=== PATIENT | female | born 1955 | race African-American/Black ===

== ENCOUNTER 2017-08-02 00:37 | Emergency (ER) | payer BC ==
[2017-08-02 00:48] VITALS: TEMP 98.8; BMI 21.2
--- NOTE | 2017-08-02 01:45 | PDOC ---
History of Present Illness - General Chief Complaint: Chest Pain Stated Complaint: CHEST PAIN Time Seen by Provider: 08/02/17 01:30 History Source: Patient Exam Limitations: No Limitations - History of Present Illness Initial Comments: This is a 62 yo female with h/o HTN and fibromyalgia who presents h/o chest pain for the past week. The pain is 8/10 when she moves or breathes deeply, radiates to the right upper abdomen, is constant and has been worsening since the onset a week ago. She has taken no medications specifically for this pain ( though she notes she does take a narcotic pain reliever for her fibromyalgia anyway) and has never had this pain before. She additionally notes subjective fever, sweats, and runny nose. She denies any nausea, vomiting, diarrhea, headache, dysuria, cough, or sore throat. She has not had any prolonged immobilization or travel. She has not had a recent injury, surgery, or leg pain/ swelling, and has not had clotting problems in the past. She does not take estrogen. Past History - Past Medical History Allergies/Adverse Reactions: Allergies Allergy/AdvReac Type Severity Reaction Status Date / Time enalapril Allergy Severe Swelling Verified 08/02/17 00:45 flu shot Allergy Severe Rash Uncoded 08/02/17 00:45 Home Medications: Ambulatory Orders Hydrochlorothiazide [Hctz -] 25 mg PO DAILY 06/26/14 Zolpidem Tartrate [Ambien Cr] 12.5 mg PO HS 04/18/15 Hydralazine HCl 50 mg PO TID 05/18/16 Tapentadol HCl [Nucynta] 50 mg PO DAILY 06/29/16 Hydroxyzine HCl [Atarax -] 25 mg PO DAILY 06/30/16 Milk Thistle Seed Extract [Milk Thistle Extract] 87.5 mg PO DAILY 08/02/17 Omeprazole Magnesium [Prilosec] 20 mg PO DAILY 08/02/17 Clindamycin [Cleocin -] 300 mg PO TID #30 capsule 08/04/17 Anemia: No Asthma: No Cancer: No Cardiac Disorders: No CVA: No COPD: No CHF: No Dementia: No Diabetes: No GI Disorders: Yes (STOMACH ULCER) Disorders: No HTN: Yes Hypercholesterolemia: No Liver Disease: Yes (HEPATITIS A) Suicide Attempt (Hx): No Seizures: No Thyroid Disease: No - Surgical History Abdominal Surgery: Yes (EXPLORATORY LAP-GASTRIC ULCER) Appendectomy: No Cardiac Surgery: No Cholecystectomy: No Lung Surgery: No Neurologic Surgery: No Orthopedic Surgery: No - Immunization History Immunization Up to Date: Yes - Suicide/Smoking/Psychosocial Hx Anxiety: No Suicidal Ideation: No Smoking History: Never smoked Have you smoked in the past 12 months: No If you are a former smoker, when did you quit?: 10 YRS AGO Hx Alcohol Use: No Drug/Substance Use Hx: No Substance Use Type: Alcohol Hx Substance Use Treatment: No Cardiac Specific PMH - Complaint Specific PMHX Pacemaker: No Review of Systems - Review of Systems Constitutional: Yes: Fever (subjective), Other (sweats). No: Chills, Unexplained wgt Loss HEENTM: Yes: Other (runny nose). No: Nose Congestion, Throat Pain Respiratory: Yes: Shortness of Breath (secondary only to pain). No: Cough Cardiac (ROS): Yes: Chest Pain (right sided). No: Edema, Palpitations ABD/GI: Yes: Constipated (chronic). No: Diarrhea, Nausea, Vomiting : No: Burning, Dysuria Musculoskeletal: No: Back Pain, Neck Pain Integumentary: No: Bruising, Rash Neurological: No: Headache, Numbness, Tingling, Weakness, Dizziness Endocrine: No: Unexplained Weight Gain, Unexplained Weight Loss *Physical Exam - Vital Signs Last Vital Signs Temp Pulse Resp BP Pulse Ox 98.8 F 85 16 152/90 99 08/02/17 00:40 08/02/17 09:18 08/02/17 09:18 08/02/17 09:18 08/02/17 09:18 - Physical Exam General Appearance: Yes: Nourished, Appropriately Dressed, Thin, Other (well- appearing, conversive, pleasant, answering questions appropriately). No: Apparent Distress HEENT: positive: EOMI, Normal Voice, Hearing Grossly Normal. negative: Scleral Icterus (R), Scleral Icterus (L), Nasal Congestion Neck: positive: Trachea midline, Supple. negative: Tender, Rigid Respiratory/Chest: positive: Chest Tender (tenderness to compression of the right chest wall which reproduces the chief complaint exactly), Lungs Clear, Normal Breath Sounds. negative: Respiratory Distress, Accessory Muscle Use, Crackles, Rhonchi, Stridor, Wheezing Cardiovascular: positive: Regular Rhythm, Regular Rate. negative: Murmur Gastrointestinal/Abdominal: positive: Normal Bowel Sounds, Flat, Soft. negative : Tender, Organomegaly, Pulsatile Mass, Guarding Musculoskeletal: positive: Normal Inspection. negative: CVA Tenderness, Decreased Range of Motion, Vertebral Tenderness Extremity: positive: Normal Capillary Refill, Normal Inspection, Normal Range of Motion. negative: Tender, Cyanosis Integumentary: positive: Normal Color, Dry, Warm. negative: Erythema, Rash, Bruising Neurologic: positive: terminal manager II-XII NML intact (grossly), Fully Oriented, Alert, Normal Mood/Affect, Normal Response, Motor Strength 5/5 Heart Score/ECG Review - History History: Slightly suspicious - Electrocardiogram EKG: Normal - Age Age: 45-65 - Risk Factors Risk Factors Heart Score: Yes Hx Hypertension Based on the list above the patient has:: 1-2 risk factors - Troponin Troponin: </= normal limit - Score Heart Score - Total: 2 #1 Normal sinus rhythm, rate of 84, normal axis and intervals, normal EKG ED Treatment Course - LABORATORY CBC & Chemistry Diagram: 08/02/17 01:58 08/02/17 04:50 - ADDITIONAL ORDERS Additional order review: 08/02/17 03:15 Urine Culture - Final Urine - Urine Clean Catch Strep Agalactiae Group B 08/02/17 01:58 RBC 3.57 L MCV 81.4 MCHC 33.9 RDW 13.8 MPV 8.9 Neutrophils % 60.7 Lymphocytes % 22.4 Monocytes % 13.3 H Eosinophils % 2.1 Basophils % 1.5 - RADIOLOGY Radiology Studies Ordered: Category Date Time Status CHEST CTA [CT] Stat CT Scan 08/02/17 02:58 Completed CHEST PA & LAT [RAD] Stat Radiology 08/02/17 01:47 Completed EXAM#: TYPE/EXAM: RESULT: [id number] RAD/CHEST PA LAT EXAM: CHEST X-RAY-PA AND LATERAL VIEWS INDICATION: Chest pain. COMPARISON: 04/18/2015 chest x-ray. FINDINGS: There is linear scarring and/or atelectasis in the inferior lingula and bilateral lung bases. There is no airspace consolidation or other opacity to suggest pneumonia. Normal size and contour of the cardiomediastinal silhouette. No evidence of pulmonary vascular congestion, pleural effusion or pneumothorax. No abnormal deviation of the trachea. IMPRESSION: No airspace consolidation or other opacity to suggest pneumonia. Mild linear scarring and/or atelectasis in both lung bases and inferior lingula. Reported By: Luis Alfredo Barba MD 08/02/17 0758 EXAM#: TYPE/EXAM: RESULT: [id number] CT/CHEST CTA HISTORY PROVIDED: Chest pain, rule out PE. TECHNIQUE: Sequential axial images were obtained from the thoracic inlet through the domes of the diaphragm following the administration of intravenous contrast material. CTA pulmonary embolism protocol was utilized, including coronal and oblique coronal MIP images. There is adequate opacification of the central pulmonary vasculature with no filling defects suspicious for pulmonary embolism. The lung forbes are free of pulmonary masses, areas of acute consolidation or pleural effusions. Mild atelectatic changes are seen at the lung bases. Evaluation of the mediastinum demonstrates slightly prominent lymph nodes, particularly within the subcarinal space. The etiology and significance of this adenopathy is uncertain. The heart is not enlarged. There is no evidence of thoracic aortic aneurysm or dissection. Limited evaluation of the upper abdomen demonstrates no acute abnormalities. IMPRESSION: No evidence of pulmonary embolism or acute pathology within the chest. Please see above discussion. Reported By: Iron Dominguez MD 08/02/17 0803 - Medications Given in the ED: ED Medications Discontinued Medications Generic Name Dose Route Start Last Admin Trade Name Freq PRN Reason Stop Dose Admin Sodium Chloride 1,000 mls @ 1,000 mls/hr 08/02/17 03:03 08/02/17 03:18 Normal Saline - IV 08/02/17 04:02 1,000 mls/hr ASDIR STA Administration Sodium Chloride 1,000 mls @ 1,000 mls/hr 08/02/17 03:27 08/02/17 03:59 Normal Saline - IV 08/02/17 04:26 1,000 mls/hr ASDIR STA Administration Medical Decision Making - Medical Decision Making 62 yof with HTN and fibromyalgia p/w right chest pain radiating to RUQ. On exam she has normal heart and lung sounds, chest wall tenderness to compression. No leg tenderness or swelling, no palpable cords. DDX: musculoskeletal/chest wall pain, ACS, PE, PNA/bronchitis, pneumothorax. cholecystitis. Ordered is CBCD, CMP, Mg, Phos, cardiac profile, EKG, CXR, d-dimer. Unlikely PE as she meets no PERC or Wells criteria but will get d-dimer. Unlikely PTX as breath sounds are equal. Unlikely PNA/bronchitis as Pt has no SOB or cough. Lab calls and d-dimer is elevated >950. Chest CTA ordered but Pt's Cr is 1.5 (better than prior here on her EMR). LFTs also elevated though patient had HCV (treated last year with Harvoni). Will hydrate the patient with IVF and repeat CMP then try for CTA. CMP improves and Pt is appropriate for CTA. CTA and CXR without e/o PE or other acute cardiopulmonary processes. Pt's care is signed out to the oncoming ED team for repeat troponin. *DC/Admit/Observation/Transfer Diagnosis at time of Disposition: Chest pain Qualifiers: Chest pain type: unspecified Qualified Code(s): R07.9 - Chest pain, unspecified - Discharge Dispostion Disposition: HOME Condition at time of disposition: Improved Admit: No - Prescriptions Prescriptions: Clindamycin [Cleocin -] 300 mg PO TID #30 capsule - Referrals Referrals: Faye Morris MD [Primary Care Provider] - - Patient Instructions Printed Discharge Instructions: DI for Chest Pain Additional Instructions: You were seen in the ED today for right-sided chest pain. We did blood work, an EKG, and a CT scan of the chest, and overall we did not find anything to suggest you have an emergency cause for the pain. Please follow up with Dr. Morris or one of his colleagues in his office. Return to the ED if you have any new or worsening symptoms like shortness of breath, worsened pain, calf tenderness or swelling, or other symptoms. - Post Discharge Activity Forms/Work/School Notes: Back to Work
--- NOTE | 2017-08-02 01:53 | PDOC ---
Attending Attestation - Resident Resident Name: Dara Mascorro - ED Attending Attestation I have performed the following: I have examined & evaluated the patient, The case was reviewed & discussed with the resident, I agree w/resident's findings & plan, Exceptions are as noted - HPI HPI: 08/02/17 01:52 chest pain with difficulty for one week. - Physicial Exam PE: 08/07/17 19:35 *Physical Exam General Appearance: Yes: Appropriately Dressed. No: Apparent Distress, Intoxicated HEENT: positive: EOMI, PAPI, Normal ENT Inspection, Normal Voice, TMs Normal, Pharynx Normal. negative: Pale Conjunctivae, Photophobia, Scleral Icterus (R), Scleral Icterus (L) Neck: positive: Trachea midline, Normal Thyroid, Supple. negative: Tender, Rigid, Carotid bruit, Stridor, Lymphadenopathy (R), Lymphadenopathy (L), Thyromegaly Respiratory/Chest: positive: Lungs Clear, Normal Breath Sounds. negative: Chest Tender, Respiratory Distress, Accessory Muscle Use, Labored Respiration, RES, Crackles, Rales, Rhonchi, Stridor, Wheezing, Dullness Cardiovascular: positive: Regular Rhythm, Regular Rate, S1, S2. negative: Edema , JVD, Murmur, Bradycardia, Tachycardia Vascular Pulses: Dorsalis-Pedis (R): 2+, Doralis-Pedis (L): 2+ Gastrointestinal/Abdominal: positive: Normal Bowel Sounds, Flat, Soft. negative : Tender, Organomegaly, Pulsatile Mass, Increased Bowel Sounds, Decreased BS, Distended, Guarding, Rebound, Hernia, Hepatomegaly, Spleenomegaly Lymphatic: negative: Adenopathy, Tenderness Musculoskeletal: positive: Normal Inspection. negative: CVA Tenderness, Decreased Range of Motion Extremity: positive: Normal Capillary Refill, Normal Inspection, Normal Range of Motion, Pelvis Stable. negative: Tender, Pedal Edema, Swelling, Erythema Integumentary: positive: Normal Color, Dry, Warm. negative: Cyanotic, Erythema , Jaundice, Rash Neurologic: positive: security patrol officer II-XII NML intact, Fully Oriented, Alert, Normal Mood/ Affect, Motor Strength 5/5. negative: EOM Palsy, Facial Droop, Sensory Deficit - Medical Decision Making 08/07/17 19:35 patient had 2 negative troponins and discharged to follow up with cardiology
[2017-08-02 02:14] LABS: BASOPHIL 1.5 % (0-2.0); EOSINOPHIL 2.1 % (0-4.5); MCH 27.6 pg (25.7-33.7); MCHC 33.9 g/dl (32.0-36.0); MEAN CELL VOLUME 81.4 fl (80-96); MEAN PLT VOLUME 8.9 fl (7.5-11.1); NEUTROPHILS 60.7 % (42.8-82.8); PLATELET COUNT 338 K/MM3 (134-434); RDW 13.8 % (11.6-15.6); WHITE BLOOD COUNT 6.4 K/mm3 (4.0-10.0)
[2017-08-02 02:41] LABS: ALBUMIN 3.1 g/dl (3.4-5.0); ALK PHOS 677 U/L (45-117); ANION GAP 10 (8-16); BILIRUBIN,TOTAL 1.5 mg/dL (0.2-1.0); CALCIUM 9.1 mg/dL (8.5-10.1); CO2 25 mmol/L (21-32); CREATININE 1.5 mg/dL (0.55-1.02); GLUCOSE,RANDOM 98 mg/dL (74-106); MAGNESIUM 1.7 mg/dL (1.8-2.4); PHOSPHOROUS 3.4 mg/dL (2.5-4.9); SGOT/AST 114 U/L (15-37); SGPT/ALT 131 U/L (12-78); TOT PROT 8.1 g/dl (6.4-8.2)
[2017-08-02 03:00] LABS: CPK 180 IU/L (26-192)
[2017-08-02 03:01] LABS: TROPONIN I < 0.02 ng/ml (0.00-0.05)
[2017-08-02] MEDS ORDERED: SODIUM CHLORIDE 1,000 ML IV STA ×2 (03:03→03:27)
[2017-08-02 03:20] LABS: URINE APPEARANCE CLEAR; URINE BILIRUBIN NEGATIVE (NEGATIVE); URINE BLOOD NEGATIVE (NEGATIVE); URINE COLOR AMBER; URINE GLUCOSE (UA) NEGATIVE (NEGATIVE); URINE KETONE NEGATIVE (NEGATIVE); URINE LEUK ESTERASE TRACE (NEGATIVE); URINE NITRITE NEGATIVE (NEGATIVE); URINE PROTEIN NEGATIVE (NEGATIVE); URINE UROBILINOGEN NEGATIVE mg/dL (0.2-1.0)
[2017-08-02 03:35] LABS: URINE HYALINE CAST 5 /lpf; URINE RBC 3 /hpf (0-3); URINE WBC 4 /hpf (3-5)
[2017-08-02 05:25] LABS: ALBUMIN 2.9 g/dl (3.4-5.0); ALK PHOS 638 U/L (45-117); ANION GAP 7 (8-16); BILIRUBIN,TOTAL 1.3 mg/dL (0.2-1.0); CALCIUM 8.3 mg/dL (8.5-10.1); CO2 25 mmol/L (21-32); CREATININE 1.3 mg/dL (0.55-1.02); GLUCOSE,RANDOM 114 mg/dL (74-106); SGOT/AST 105 U/L (15-37); SGPT/ALT 124 U/L (12-78)
--- NOTE | 2017-08-02 07:27 | PDOC ---
*Physical Exam - Vital Signs Last Vital Signs Temp Pulse Resp BP Pulse Ox 98.8 F 88 18 125/89 99 08/02/17 00:40 08/02/17 00:40 08/02/17 00:40 08/02/17 00:40 08/02/17 00:40 ED Treatment Course - LABORATORY CBC & Chemistry Diagram: 08/02/17 01:58 08/02/17 04:50 - ADDITIONAL ORDERS Additional order review: Laboratory Results 08/02/17 08/02/17 08/02/17 04:50 04:50 03:15 D-Dimer Sodium 139 Potassium 3.5 Chloride 107 Carbon Dioxide 25 Anion Gap 7 L BUN 21 H Creatinine 1.3 H Creat Clearance w eGFR 41.37 Random Glucose 114 H Calcium 8.3 L Phosphorus Magnesium Total Bilirubin 1.3 H AST 105 H ALT 124 H Alkaline Phosphatase 638 H Creatine Kinase Creatine Kinase Index CK-MB (CK-2) Troponin I < 0.02 Total Protein 8.0 Albumin 2.9 L Lipase Urine Color Dianne Urine Appearance Clear Urine pH 6.0 Urine Protein Negative Urine Glucose (UA) Negative Urine Ketones Negative Urine Blood Negative Urine Nitrite Negative Urine Bilirubin Negative Urine Urobilinogen Negative Urine RBC 3 Urine WBC 4 Ur Epithelial Cells Rare Hyaline Casts 5 08/02/17 08/02/17 08/02/17 01:59 01:58 01:58 D-Dimer 956 H Sodium Potassium Chloride Carbon Dioxide Anion Gap BUN Creatinine Creat Clearance w eGFR Random Glucose Calcium Phosphorus Magnesium Total Bilirubin AST ALT Alkaline Phosphatase Creatine Kinase 180 Creatine Kinase Index 1.4 CK-MB (CK-2) 2.566 Troponin I < 0.02 Total Protein Albumin Lipase 389 Urine Color Urine Appearance Urine pH Urine Protein Urine Glucose (UA) Urine Ketones Urine Blood Urine Nitrite Urine Bilirubin Urine Urobilinogen Urine RBC Urine WBC Ur Epithelial Cells Hyaline Casts 08/02/17 01:58 D-Dimer Sodium 137 Potassium 4.2 Chloride 102 Carbon Dioxide 25 Anion Gap 10 BUN 24 H D Creatinine 1.5 H Creat Clearance w eGFR 35.07 Random Glucose 98 D Calcium 9.1 Phosphorus 3.4 Magnesium 1.7 L Total Bilirubin 1.5 H D AST 114 H ALT 131 H Alkaline Phosphatase 677 H Creatine Kinase Creatine Kinase Index CK-MB (CK-2) Troponin I Total Protein 8.1 Albumin 3.1 L Lipase Urine Color Urine Appearance Urine pH Urine Protein Urine Glucose (UA) Urine Ketones Urine Blood Urine Nitrite Urine Bilirubin Urine Urobilinogen Urine RBC Urine WBC Ur Epithelial Cells Hyaline Casts 08/02/17 01:58 RBC 3.57 L MCV 81.4 MCHC 33.9 RDW 13.8 MPV 8.9 Neutrophils % 60.7 Lymphocytes % 22.4 Monocytes % 13.3 H Eosinophils % 2.1 Basophils % 1.5 - Medications Given in the ED: ED Medications Discontinued Medications Generic Name Dose Route Start Last Admin Trade Name Manuela PRN Reason Stop Dose Admin Sodium Chloride 1,000 mls @ 1,000 mls/hr 08/02/17 03:03 08/02/17 03:18 Normal Saline - IV 08/02/17 04:02 1,000 mls/hr ASDIR STA Administration Sodium Chloride 1,000 mls @ 1,000 mls/hr 08/02/17 03:27 08/02/17 03:59 Normal Saline - IV 08/02/17 04:26 1,000 mls/hr ASDIR STA Administration Medical Decision Making - Medical Decision Making 62 year old female signed out to me in stable condition pending a second Troponin for her chest pain. She states that her pain has improved since her original presentation. Will draw 2nd Troponin at 7:50 AM then send her home with follow up. 08/02/17 07:32 Repeat EKG is similar to previous. Pending repeat Troponin. 08/02/17 08:37 2nd troponin negative, will discharge patient home. 08/02/17 08:59 08/02/17 19:40 *DC/Admit/Observation/Transfer Diagnosis at time of Disposition: Chest pain Qualifiers: Chest pain type: unspecified Qualified Code(s): R07.9 - Chest pain, unspecified - Discharge Dispostion Disposition: HOME Condition at time of disposition: Improved Admit: No - Referrals Referrals: Faye Morris MD [Primary Care Provider] - - Patient Instructions Printed Discharge Instructions: DI for Chest Pain Additional Instructions: You were seen in the ED today for right-sided chest pain. We did blood work, an EKG, and a CT scan of the chest, and overall we did not find anything to suggest you have an emergency cause for the pain. Please follow up with Dr. Morris or one of his colleagues in his office. Return to the ED if you have any new or worsening symptoms like shortness of breath, worsened pain, calf tenderness or swelling, or other symptoms. - Post Discharge Activity Work/School Note: Back to Work
[2017-08-02 08:36] LABS: CPK 162 IU/L (26-192); TROPONIN I < 0.02 ng/ml (0.00-0.05)
[2017-08-02 09:19] VITALS: BP 152/90; PULSE 85
--- NOTE | 2017-08-02 09:19 | PDOC ---
*Physical Exam - Vital Signs Last Vital Signs Temp Pulse Resp BP Pulse Ox 98.8 F 88 18 125/89 99 08/02/17 00:40 08/02/17 00:40 08/02/17 00:40 08/02/17 00:40 08/02/17 00:40 - Physical Exam Comments: 08/02/17 09:35 Gen: aaox3, nad Heart: +s1s2 reg, anterior chest wall ttp, no rashes, no breast ttp Lungs: cta b/l abd: soft, no ruq ttp, nontender ext: no c/c/e, no calf ttp ED Treatment Course - LABORATORY CBC & Chemistry Diagram: 08/02/17 01:58 08/02/17 04:50 - ADDITIONAL ORDERS Additional order review: Laboratory Results 08/02/17 08/02/17 08/02/17 07:55 04:50 04:50 D-Dimer Sodium 139 Potassium 3.5 Chloride 107 Carbon Dioxide 25 Anion Gap 7 L BUN 21 H Creatinine 1.3 H Creat Clearance w eGFR 41.37 Random Glucose 114 H Calcium 8.3 L Phosphorus Magnesium Total Bilirubin 1.3 H AST 105 H ALT 124 H Alkaline Phosphatase 638 H Creatine Kinase 162 Creatine Kinase Index CK-MB (CK-2) Troponin I < 0.02 < 0.02 Total Protein 8.0 Albumin 2.9 L Lipase Urine Color Urine Appearance Urine pH Urine Protein Urine Glucose (UA) Urine Ketones Urine Blood Urine Nitrite Urine Bilirubin Urine Urobilinogen Urine RBC Urine WBC Ur Epithelial Cells Hyaline Casts 08/02/17 08/02/17 08/02/17 03:15 01:59 01:58 D-Dimer 956 H Sodium Potassium Chloride Carbon Dioxide Anion Gap BUN Creatinine Creat Clearance w eGFR Random Glucose Calcium Phosphorus Magnesium Total Bilirubin AST ALT Alkaline Phosphatase Creatine Kinase Creatine Kinase Index CK-MB (CK-2) Troponin I Total Protein Albumin Lipase 389 Urine Color Dianne Urine Appearance Clear Urine pH 6.0 Urine Protein Negative Urine Glucose (UA) Negative Urine Ketones Negative Urine Blood Negative Urine Nitrite Negative Urine Bilirubin Negative Urine Urobilinogen Negative Urine RBC 3 Urine WBC 4 Ur Epithelial Cells Rare Hyaline Casts 5 08/02/17 08/02/17 01:58 01:58 D-Dimer Sodium 137 Potassium 4.2 Chloride 102 Carbon Dioxide 25 Anion Gap 10 BUN 24 H D Creatinine 1.5 H Creat Clearance w eGFR 35.07 Random Glucose 98 D Calcium 9.1 Phosphorus 3.4 Magnesium 1.7 L Total Bilirubin 1.5 H D AST 114 H ALT 131 H Alkaline Phosphatase 677 H Creatine Kinase 180 Creatine Kinase Index 1.4 CK-MB (CK-2) 2.566 Troponin I < 0.02 Total Protein 8.1 Albumin 3.1 L Lipase Urine Color Urine Appearance Urine pH Urine Protein Urine Glucose (UA) Urine Ketones Urine Blood Urine Nitrite Urine Bilirubin Urine Urobilinogen Urine RBC Urine WBC Ur Epithelial Cells Hyaline Casts 08/02/17 01:58 RBC 3.57 L MCV 81.4 MCHC 33.9 RDW 13.8 MPV 8.9 Neutrophils % 60.7 Lymphocytes % 22.4 Monocytes % 13.3 H Eosinophils % 2.1 Basophils % 1.5 - Medications Given in the ED: ED Medications Discontinued Medications Generic Name Dose Route Start Last Admin Trade Name Freq PRN Reason Stop Dose Admin Sodium Chloride 1,000 mls @ 1,000 mls/hr 08/02/17 03:03 08/02/17 03:18 Normal Saline - IV 08/02/17 04:02 1,000 mls/hr ASDIR STA Administration Sodium Chloride 1,000 mls @ 1,000 mls/hr 08/02/17 03:27 08/02/17 03:59 Normal Saline - IV 08/02/17 04:26 1,000 mls/hr ASDIR STA Administration Medical Decision Making - Medical Decision Making 08/02/17 09:36 re-eval: pt pending repeat trop for anterior chest wall R sided pain. Pt states pain worse with movement. No pleuritic component. Tender to palpation. Atypical cp. Initial trop negative. EKG: sinus at 84, nl axis, nl interval, no acute st/t wave findings, no changes from prior 08/02/17 09:37 repeat trop x 2 more negative. Pt stable for d/c to home. Call placed to Dr. Morris to update on pts status. Recommend outpt follow up. Pt stable for d/c to home. Discussed all reasons to return to the ED and need for home. *DC/Admit/Observation/Transfer Diagnosis at time of Disposition: Chest pain Qualifiers: Chest pain type: unspecified Qualified Code(s): R07.9 - Chest pain, unspecified - Discharge Dispostion Disposition: HOME Condition at time of disposition: Improved - Referrals Referrals: Faye Morris MD [Primary Care Provider] - - Patient Instructions Printed Discharge Instructions: DI for Chest Pain Additional Instructions: You were seen in the ED today for right-sided chest pain. We did blood work, an EKG, and a CT scan of the chest, and overall we did not find anything to suggest you have an emergency cause for the pain. Please follow up with Dr. Morris or one of his colleagues in his office. Return to the ED if you have any new or worsening symptoms like shortness of breath, worsened pain, calf tenderness or swelling, or other symptoms. - Post Discharge Activity Work/School Note: Back to Work
--- NOTE | 2017-08-02 13:11 | EKG ---
Test Reason : Blood Pressure : / mmHG Vent. Rate : 084 BPM Atrial Rate : 084 BPM P-R Int : 154 ms QRS Dur : 088 ms QT Int : 380 ms P-R-T Axes : 066 004 038 degrees QTc Int : 449 ms NORMAL SINUS RHYTHM NORMAL ECG WHEN COMPARED WITH ECG OF 18-APR-2015 18:16, NO SIGNIFICANT CHANGE WAS FOUND Confirmed by LYLY NAVARRO MD ([id number]) on 08/02/2017 1:11:08 PM Referred By: Confirmed By:LYLY NAVARRO MD
--- NOTE | 2017-08-02 13:14 | EKG ---
Test Reason : Blood Pressure : / mmHG Vent. Rate : 092 BPM Atrial Rate : 092 BPM P-R Int : 152 ms QRS Dur : 078 ms QT Int : 350 ms P-R-T Axes : 061 010 044 degrees QTc Int : 432 ms NORMAL SINUS RHYTHM NORMAL ECG WHEN COMPARED WITH ECG OF 18-APR-2015 18:16, NO SIGNIFICANT CHANGE WAS FOUND Confirmed by LYLY NAVARRO MD ([id number]) on 08/02/2017 1:14:10 PM Referred By: Confirmed By:LYLY NAVARRO MD
--- NOTE | 2017-08-04 07:36 | PDOC ---
Patient Follow-up (Call Back) - Post ED Follow - Up Condition at time of discharge: Improved Disposition at time of original discharge: HOME Reason for Call Back: Abnwl. Microbiology (Urine culture preliminary lab shows GBS greater than 100,000. Patient had normal white count here in the ER with no fever. Based on clinical exam note, I will prescribe clindamycin 300 mg 3 times a day for 10 days. Prescription was sent to [facility])
== END 2017-08-02 09:19 | disposition home or self-care (01) ==
LOC: JER 00:37
PROC: 3E0337Z Introduction of Electrolytic and Water Balance Substance into Peripheral Vein, Percutaneous Approach (ICD-10-PCS; principal; 2017-08-02)
DX: R07.9 Chest pain, unspecified (principal)
CPT/HCPCS: 36415; 71020-TC; 71275-TC; 80053; 81003; 81015; 82553; 83690; 83735; 84100; 84484; 85025; 85379; 87086; 87186; 93005; 93010; 99284-25

== ENCOUNTER 2020-05-18 12:17 | Emergency (ER) | payer OTHER, BC ==
[2020-05-18 12:34] VITALS: BP 136/70; PULSE 103; TEMP 99.5; BMI 19.5
--- NOTE | 2020-05-18 13:07 | PDOC ---
History of Present Illness - General Stated Complaint: BACK PAIN / SOB Time Seen by Provider: 05/18/20 12:36 History Source: Patient - History of Present Illness Occurred: reports: last week Pain Location: reports: back Past History - Medical History Allergies/Adverse Reactions: Allergies Allergy/AdvReac Type Severity Reaction Status Date / Time enalapril Allergy Severe Swelling Verified 05/18/20 12:29 flu shot Allergy Severe Rash Uncoded 05/18/20 12:29 Home Medications: Ambulatory Orders Hydrochlorothiazide [Hctz -] 25 mg PO DAILY 06/26/14 Zolpidem Tartrate [Ambien Cr] 12.5 mg PO HS 04/18/15 Hydralazine HCl 50 mg PO TID 05/18/16 Tapentadol HCl [Nucynta] 50 mg PO DAILY 06/29/16 hydrOXYzine HCL [Atarax -] 25 mg PO DAILY 06/30/16 Milk Thistle Seed Extract [Milk Thistle Extract] 87.5 mg PO DAILY 08/02/17 Omeprazole Magnesium [Prilosec] 20 mg PO DAILY 08/02/17 Clindamycin [Cleocin -] 300 mg PO TID #30 capsule 08/04/17 Anemia: No Asthma: No Cancer: No Cardiac Disorders: No CVA: No COPD: No CHF: No Dementia: No Diabetes: No GI Disorders: Yes (STOMACH ULCER) Disorders: No HTN: Yes Hypercholesterolemia: No Liver Disease: Yes (HEPATITIS A) Seizures: No Thyroid Disease: No - Surgical History Abdominal Surgery: Yes (EXPLORATORY LAP-GASTRIC ULCER) Appendectomy: No Cardiac Surgery: No Cholecystectomy: No Lung Surgery: No Neurologic Surgery: No Orthopedic Surgery: No - Immunization History Immunization Up to Date: Yes - Psycho-Social/Smoking History Smoking History: Never smoked Have you smoked in the past 12 months: No If you are a former smoker, when did you quit?: 10 YRS AGO - Substance Abuse Hx (Audit-C & DAST Scrn) How often the patient has a drink containing alcohol: Never Score: In Men: 4 or > Positive; In Women: 3 or > Positive: 0 Screen Result (Pos requires Nsg. Audit-10AR): Negative In the last yr the pt used illegal drug/Rx for NonMed reason: No Score: Yes response is considered Positive: 0 Screen Result (Positive result requires Nsg. DAST-10): Negative Review of Systems - Review of Systems Constitutional: No: Chills, Fever, Unexplained wgt Loss ABD/GI: No: Nausea, Vomiting, Abdominal cramping : No: Dysuria, Flank Pain, Hematuria Musculoskeletal: Yes: Back Pain Neurological: No: Numbness, Tingling, Weakness *Physical Exam - Vital Signs Last Vital Signs Temp Pulse Resp BP Pulse Ox 99.5 F 103 H 18 136/70 100 05/18/20 12:29 05/18/20 12:05/18/20 12:05/18/20 12:05/18/20 12:29 - Physical Exam General Appearance: Yes: Appropriately Dressed. No: Apparent Distress HEENT: positive: Normal Voice Neck: positive: Supple Respiratory/Chest: negative: Respiratory Distress Gastrointestinal/Abdominal: positive: Normal Bowel Sounds, Soft. negative: Tender, Pulsatile Mass, Distended, Guarding, Rebound Musculoskeletal: negative: CVA Tenderness, Vertebral Tenderness Extremity: positive: Normal Inspection Integumentary: positive: Dry, Warm Neurologic: positive: Fully Oriented, Alert, Normal Mood/Affect, Motor Strength 5/5 Medical Decision Making - Medical Decision Making 05/18/20 13:19 64 yo F, h/o chronic intermittent low back pain w/ disc bulge to LS spine on MRI several years ago, here w/ her usual LBP x 1 week, achy, on and off, 6/10, worse w/ ambulation. Has pain meds at home but states she does not like taking medication. Denies any sensory changes, saddle anesthesia bowel or bladder incontinence or lower extremity weakness. No symptoms nausea vomiting fever or chills. Patient states she went to urgent care several days ago and had a CAT scan of her lumbar spine which was mostly normal per patient see exam Acute on chronic LBP Disc bulge to LS spine on MRI in [address] LS spine at last week per pt No red flags at this time and able to ambulate Dc to take pain meds at home as needed and f/u with her PMD 05/18/20 13:30 05/18/20 14:10 After being seen by myself, pt was ushered to registration window to complete registration. At some point, it came to my attention that pt had instead walked outside and was calling a taxi. I grabbed pt' discharge papers and went outside to request that she returns to complete registration and sign discharge papers. Pt waved me off and then proceeded to call a taxi. Discharge - Discharge Information Problems reviewed: Yes Clinical Impression/Diagnosis: Back pain Qualifiers: Back pain location: low back pain Chronicity: unspecified Back pain laterality: bilateral Sciatica presence: without sciatica Qualified Code(s): M54.5 - Low back pain Condition: Good Disposition: HOME - Follow up/Referral - Patient Discharge Instructions Patient Printed Discharge Instructions: Low Back Pain Additional Instructions: Please take home medications as needed and follow up with your PMD - Post Discharge Activity
== END 2020-05-18 13:31 | disposition home or self-care (01) ==
LOC: JERFT 12:17
DX: M54.5 Low back pain (principal)
CPT/HCPCS: 99283-25

== ENCOUNTER → 2020-09-01 | Emergency (ER) | payer OTHER, BC ==
[~2020-09-01] MED LIST: KCL 10 MEQ IVPB 20 MEQ/200 ML INFUS.BAG IVPB ONE
--- OUTSIDE RECORDS SUMMARY | 2020-09-01 06:58 | XMS ---
:1955 Author Organization [facility] Support Name Relationship Address Phone RE Unavailable Unavailable Unavailable [facility] Unavailable [address] [place] [address] TONYA RENEE FRIEND [address] [place] [address] Re-disclosure Warning The records that you are about to access may contain information from federally- assisted alcohol or drug abuse programs. If such information is present, then the following federally mandated warning applies: This information has been disclosed to you from records protected by federal confidentiality rules (42 CFR part 2). The federal rules prohibit you from making any further disclosure of this information unless further disclosure is expressly permitted by the written consent of the person to whom it pertains or as otherwise permitted by 42 CFR part 2. A general authorization for the release of medical or other information is NOT sufficient for this purpose. The Federal rules restrict any use of the information to criminally investigate or prosecute any alcohol or drug abuse patient.The records that you are about to access may contain highly sensitive health information, the redisclosure of which is protected by Article 27-F of the [facility] Public Health law. If you continue you may haveaccess to information: Regarding HIV / AIDS; Provided by facilities licensed or operated by the [facility] Office of Mental Health; or Provided by the [facility] Office for People With Developmental Disabilities. If such information is present, then the following [facility] mandated warning applies: This information has been disclosed to you from confidential records which are protected by state law. State law prohibits you from making any further disclosure of this information without the specific written consent of the person to whom it pertains, or as otherwise permitted by law. Any unauthorized further disclosure in violation of state law may result in a fine or residential sentence or both. A general authorization for the release of medical or other information is NOT sufficient authorization for further disclosure. Insurance Providers Payer name Policy type Policy ID Covered Covered republican's Policy P nuzhat / Coverage republican ID relationship to [employer] ormation type melo MEDICARE [id number] SP [id number] BC PPO [id number] SP [id number] MEDICARE [id number] SP [id number] BC INDEMNITY [id number] SP [id number]
[2020-09-01 07:13] VITALS: BMI 14.1
[2020-09-01 08:07] LABS: EPI CELLS 14 /uL (0-25.1); HYALINE CASTS 12 /uL (0-3.1); URINE APPEARANCE CLEAR; URINE BILIRUBIN 3+ (NEGATIVE); URINE COLOR DK YELLOW; URINE GLUCOSE (UA) NEGATIVE (NEGATIVE); URINE KETONE NEGATIVE (NEGATIVE); URINE LEUK ESTERASE TRACE (NEGATIVE); URINE NITRITE POSITIVE (NEGATIVE); URINE PROTEIN 1+ (NEGATIVE); URINE RBC 18 /uL (0-23.9); URINE UROBILINOGEN 4.0 E.U/dl mg/dL (0.2-1.0); URINE WBC 7 /uL (0-25.8)
--- NOTE | 2020-09-01 08:08 | PDOC ---
Documentation entered by Deepak Henderson SCRIBE, acting as scribe for Jeferson Lyons MD. Jeferson Lyons MD: This documentation has been prepared by the reginaibe, Deepak Henderson SCRIBE, under my direction and personally reviewed by me in its entirety. I confirm that the documentation accurately reflects all work, treatment, procedures, and medical decision making performed by me. History of Present Illness - General Chief Complaint: CVA/TIA Stated Complaint: WEAKNESS/FACIAL DROOP Time Seen by Provider: 09/01/20 07:16 History Source: Patient, Family Exam Limitations: No Limitations - History of Present Illness Initial Comments: 09/01/20 07:55 The patient is a year old female with a significant past medical history of HTN, hepatitis C, hepatitis A, gastric ulcer, and spinal compression fracture who presents to the emergency department for evaluation after being found on the ground by her sister today. The patient is unable to communicate, so history was obtained from her sister. As per patients sister at bedside, pt was found on the ground by her bed this morning unresponsive. Sister last spoke with pt at midnight, and she states she was her usual self. Pt's sister states that pt had a similar episode several weeks ago, and she believes that it was due to the narcotic medications she uses to sleep. She does not recall the names of these medications. In ED, pt is somnolent but arousable to verbal stimuli. She is oriented to person only. Denies any pain. Last Known Well: eight hours ago; midnight Allergies: enalapril, flu shot Social Hx: As per chart, the patient quit smoking 10 years ago. Surgical Hx: exploratory lap-gastric ulcer PCP: Dr. Morris Past History - Medical History Allergies/Adverse Reactions: Allergies Allergy/AdvReac Type Severity Reaction Status Date / Time enalapril Allergy Severe Swelling Verified 09/01/20 07:01 flu shot Allergy Severe Rash Uncoded 09/01/20 07:01 Home Medications: Ambulatory Orders Hydrochlorothiazide [Hctz -] 25 mg PO DAILY 06/26/14 Zolpidem Tartrate [Ambien Cr] 12.5 mg PO HS 04/18/15 Hydralazine HCl 50 mg PO TID 05/18/16 Tapentadol HCl [Nucynta] 50 mg PO DAILY 06/29/16 hydrOXYzine HCL [Atarax -] 25 mg PO DAILY 06/30/16 Omeprazole Magnesium [Prilosec] 40 mg PO DAILY 08/02/17 Cyclobenzaprine HCl [Flexeril 10 mg] 10 mg PO BID 09/01/20 Ibuprofen [Ibu] 400 mg PO TID 09/01/20 Mirabegron [Myrbetriq] 25 mg PO DAILY 09/01/20 Anemia: No Asthma: No Cancer: No Cardiac Disorders: No CVA: No COPD: No CHF: No Dementia: No Diabetes: No GI Disorders: Yes (STOMACH ULCER) Disorders: No HTN: Yes Hypercholesterolemia: No Liver Disease: Yes (HEPATITIS A) Seizures: No Thyroid Disease: No - Surgical History Abdominal Surgery: Yes (EXPLORATORY LAP-GASTRIC ULCER) Appendectomy: No Cardiac Surgery: No Cholecystectomy: No Lung Surgery: No Neurologic Surgery: No Orthopedic Surgery: No - Immunization History Immunization Up to Date: Yes - Psycho-Social/Smoking History Smoking History: Unknown if ever smoked Have you smoked in the past 12 months: No If you are a former smoker, when did you quit?: 10 YRS AGO - Substance Abuse Hx (Audit-C & DAST Scrn) How often the patient has a drink containing alcohol: Never Score: In Men: 4 or > Positive; In Women: 3 or > Positive: 0 Screen Result (Pos requires Nsg. Audit-10AR): Negative In the last yr the pt used illegal drug/Rx for NonMed reason: No Score: Yes response is considered Positive: 0 Screen Result (Positive result requires Nsg. DAST-10): Negative Review of Systems - Review of Systems Able to Perform ROS?: No (Patient not communicating) Is the patient limited Honduran proficient: Yes *Physical Exam - Vital Signs Last Vital Signs Temp Pulse Resp BP Pulse Ox 97.6 F 96 H 16 140/85 100 09/01/20 06:54 09/01/20 06:54 09/01/20 06:54 09/01/20 06:54 09/01/20 06:54 - Physical Exam 09/01/20 07:31 "GENERAL: somnolent but arousable to verbal stimuli, in no acute distress. HEAD: No signs of trauma EYES: Pupils constricted, EOMI, conjunctiva clear ENT: Auricles normal inspection, hearing grossly normal, nares patent, oropharynx clear without exudates. Moist mucosa NECK: Nontender, no stepoffs, Normal ROM, supple, no lymphadenopathy, JVD, or masses LUNGS: Breath sounds equal, clear to auscultation bilaterally. No wheezes, and no crackles HEART: Regular rate and rhythm, normal S1 and S2, no murmurs, rubs or gallops ABDOMEN: Soft, nontender, normoactive bowel sounds. No guarding, no rebound. No masses EXTREMITIES: Normal range of motion, no edema. No clubbing or cyanosis. No cords, erythema, or tenderness NEUROLOGICAL: Cranial nerves II through XII intact. 5/5 strength and sensation in all extremities SKIN: Warm, Dry, normal turgor, no rashes or lesions noted. ED Treatment Course - LABORATORY CBC & Chemistry Diagram: 09/01/20 07:32 09/01/20 07:32 Medical Decision Making - Critical Care Time Total Critical Care Time (minutes): 60 Critical Care Statement: The care of this patient involved high complexity decision making to prevent further life threatening deterioration of the patient's condition and/or to evaluate & treat vital organ system(s) failure or risk of failure. - Medical Decision Making 09/01/20 08:22 65 F found on the ground unresponsive this morning. Pt now arousable but still lethargic. Possible overdose on sleep medication - I-stop reveals pt is taking ambien and nucynta (tapentadol). No focal neuro deficits on exam. - CT head - Labs - Utox 09/01/20 08:47 CT head unremarkable Labs notable for elevated LFTs Utox negative Will send tylenol/salicylate and ammonia levels RUQ sono and CT ordered 09/01/20 10:53 US shows possible HCC Ammonia elevated 88 Suspect hepatic encephalopathy 09/01/20 11:[address] Fuentes. Agrees with likely hepatic encephalopathy from liver failure 2/2 hepatitis. Recommends txfer to liver center [facility] called, awaiting callback 09/01/20 13:22 Pt accepted to [facility]. Discussed with Dr. Hogue, liver fellow Will be ED-to-ED txfer for rapid COVID testing prior to admission Discharge - Discharge Information Problems reviewed: Yes Clinical Impression/Diagnosis: Hepatic encephalopathy, Altered mental status, Liver failure Condition: Critical Disposition: TRANSFER ACUTE CARE/OTHER HOSP - Follow up/Referral Referrals: Faye Morris MD [Primary Care Provider] - - Patient Discharge Instructions - Post Discharge Activity
[2020-09-01 08:12] LABS: HEMATOCRIT 26.1 % (32.4-45.2); HEMOGLOBIN 9.1 GM/dL (10.7-15.3); MCH 27.8 pg (25.7-33.7); MCHC 34.8 g/dl (32.0-36.0); MEAN CELL VOLUME 79.9 fl (80-96); MEAN PLT VOLUME 9.5 fl (7.5-11.1); PLATELET COUNT 257 K/MM3 (134-434); RBC 3.26 M/mm3 (3.60-5.2); RDW 17.6 % (11.6-15.6)
[2020-09-01 08:17] LABS: ALBUMIN 2.3 g/dl (3.4-5.0); BILIRUBIN,TOTAL 7.6 mg/dL (0.2-1); BLOOD UREA NITROGEN 29.9 mg/dL (7-18); CALCIUM 8.6 mg/dL (8.5-10.1); CREATININE 1.4 mg/dL (0.55-1.3); INR 1.16 (0.83-1.09); PROTHROMBIN TIME (PATIENT) 13.6 SEC (9.7-13.0); TOT PROT 7.6 g/dl (6.4-8.2)
[2020-09-01 08:19] LABS: ACTIVATED PTT 31.7 SECONDS (25.2-36.5)
[2020-09-01 08:37] LABS: COCAINE, UR NEGATIVE ng/ml (CUTOFF=300); METHADONE, UR NEGATIVE ng/ml (CUTOFF=300); OPIATES, URI NEGATIVE ng/ml (CUTOFF=300); PHENCYCLIDINE,URINE NEGATIVE ng/ml (CUTOFF=25); URINE AMPHETAMINES NEGATIVE ng/ml (CUTOFF=500); URINE BARBITURATES NEGATIVE ng/ml (CUTOFF=200); URINE BENZODIAZEPINES NEGATIVE ng/ml (CUTOFF=200)
[2020-09-01 08:40] LABS: POTASSIUM 2.9 mmol/L (3.5-5.1)
[2020-09-01] MEDS: KCL 10 MEQ IVPB 10 MEQ/100 ML INFUS.BAG IVPB SCH ×2 (09:09→09:57)
--- NOTE | 2020-09-01 09:48 | EKG ---
Test Reason : Blood Pressure : / mmHG Vent. Rate : 080 BPM Atrial Rate : 080 BPM P-R Int : 152 ms QRS Dur : 096 ms QT Int : 408 ms P-R-T Axes : 064 011 061 degrees QTc Int : 470 ms NORMAL SINUS RHYTHM NORMAL ECG WHEN COMPARED WITH ECG OF 02-AUG-2017 07:59, NO SIGNIFICANT CHANGE WAS FOUND Confirmed by MD Alejandro Daniel ([id number]) on 09/01/2020 9:48:06 AM Referred By: Confirmed By:Fausto Alejandro MD
[2020-09-01 09:54] LABS: ANISOCYTOSIS 2+; PLATELET ESTIMATE NORMAL; TARGET CELLS 2+
[2020-09-01 10:00] LABS: URINE BACTERIA NON SEEN /uL (0-1359)
[2020-09-01 13:08] VITALS: BP 112/63; PULSE 94; TEMP 98.9
== END | disposition short-term general hospital (02) ==
LOC: JER 06:51
DX: K72.90 Hepatic failure, unspecified without coma (principal); R41.82 Altered mental status, unspecified
CPT/HCPCS: 36415; 70450-TC; 71045-TC-FY; 74177-TC; 76705-TC; 80053; 80061; 80307; 81003; 82140; 82550; 82553; 82962; 83605; 83721; 84484; 85025; 85610; 85730; 86850; 86900; 86901; 87086; 93005; 93010; 99291; C9803; Q9967; U0003

== ENCOUNTER 2020-11-20 17:15 | Inpatient (IN) | payer OTHER, BC ==
[2020-11-20] MEDS ORDERED: FAMOTIDINE 20 MG/50 ML IVPB 20 MG/50 ML MG IVPB ONE ×2 (18:41→19:01)
[2020-11-20 19:19] LABS: HEMATOCRIT 26.7 % (32.4-45.2); HEMOGLOBIN 9.2 GM/dL (10.7-15.3); MCH 29.2 pg (25.7-33.7); MCHC 34.5 g/dl (32.0-36.0); MEAN CELL VOLUME 84.8 fl (80-96); MEAN PLT VOLUME 8.9 fl (7.5-11.1); PLATELET COUNT 225 K/MM3 (134-434); RBC 3.15 M/mm3 (3.60-5.2); RDW 19.2 % (11.6-15.6); WHITE BLOOD COUNT 8.8 K/mm3 (4.0-10.0)
[2020-11-20 19:43] LABS: CHLORIDE 111 mmol/L (98-107); POTASSIUM 3.7 mmol/L (3.5-5.1); SODIUM 139 mmol/L (136-145)
[2020-11-20 19:45] LABS: CALCIUM 8.4 mg/dL (8.5-10.1)
[2020-11-20 19:46] LABS: ALBUMIN 1.8 g/dl (3.4-5.0); ANION GAP 8 MMOL/L (8-16); BLOOD UREA NITROGEN 23.2 mg/dL (7-18); CO2 20 mmol/L (21-32); GLUCOSE,RANDOM 100 mg/dL (74-106); LIPASE 232 U/L (73-393)
[2020-11-20 19:49] LABS: CREATININE 1.3 mg/dL (0.55-1.3); SGOT/AST 149 U/L (15-37); SGPT/ALT 88 U/L (13-61)
[2020-11-20 19:50] LABS: BILIRUBIN,TOTAL 7.6 mg/dL (0.2-1); TOT PROT 7.3 g/dl (6.4-8.2)
[2020-11-20 19:52] LABS: ALK PHOS 564 U/L (45-117)
[2020-11-20] MEDS ORDERED: ONDANSETRON 4 MG/2 ML VIAL IVPUSH ONE ×2 (20:42→21:24)
[2020-11-20] MEDS ORDERED: ONDANSETRON 4 MG/2 ML VIAL ONE ×2 (20:47→22:43)
[2020-11-20 20:49] LABS: ACTIVATED PTT 31.3 SECONDS (25.2-36.5); INR 1.26 (0.83-1.09); PROTHROMBIN TIME (PATIENT) 15.4 SEC (9.7-13.0)
[2020-11-20 21:42] LABS: PLATELET ESTIMATE ADEQUATE; TARGET CELLS 1+
[2020-11-20] MEDS ORDERED: LACTULOSE 20 GM/30 ML UDC (FOR ORAL USE ONLY) PO ONE (21:45)
[2020-11-20] MEDS ORDERED: LACTULOSE 20 GM/30 ML UDC (FOR ORAL USE ONLY) ONE (22:35)
[2020-11-21] MEDS ORDERED: LACTULOSE 20 GM/30 ML UDC (FOR RECTAL USE ONLY) PR ONE (00:03)
[2020-11-21 07:55] LABS: POTASSIUM 4.2 mmol/L (3.5-5.1)
[2020-11-21 08:05] LABS: BILIRUBIN,TOTAL 9.4 mg/dL (0.2-1); TOT PROT 7.2 g/dl (6.4-8.2)
[2020-11-21 08:06] LABS: CALCIUM 8.6 mg/dL (8.5-10.1); CREATININE 1.8 mg/dL (0.55-1.3)
[2020-11-21 08:08] LABS: ALBUMIN 1.8 g/dl (3.4-5.0); BLOOD UREA NITROGEN 29.9 mg/dL (7-18)
[2020-11-21] MEDS ORDERED: SODIUM CHLORIDE 1,000 ML IV SCH (09:45)
[2020-11-21] MEDS ORDERED: PANTOPRAZOLE SODIUM 40 MG/100 ML BAG IVPB ONE (09:53)
[2020-11-21] MEDS ORDERED: VANCOMYCIN 1 GM in D5W (PRE-DOCKED) 1,000 MG/250 ML IVPB ONE (09:56)
[2020-11-21] MEDS: PANTOPRAZOLE SODIUM 40 MG VIAL IVPUSH SCH (10:08)
[2020-11-21] MEDS ORDERED: PIPERACILLIN/TAZOB 3.375 GM 3.375 GM in DEXTROSE 5%-WATER - 50 ML IVPB ONE (10:10)
[2020-11-21] MEDS: LACTULOSE 20 GM/30 ML UDC (FOR RECTAL USE ONLY) PR SCH ×2 (10:30→14:26)
[2020-11-21] MEDS ORDERED: MUPIROCIN 2% TOPICAL OINTMENT FOR DECOLONIZATION NS SCH (10:30)
[2020-11-21] MEDS ORDERED: DEXTROSE 50%-WATER - 25 GM/50 ML VIAL IVPUSH ONE (10:34)
[2020-11-21] MEDS ORDERED: DEXTROSE 50%-WATER 25 GM/50 ML DISP.SYRIN ONE (10:38)
[2020-11-21] MEDS ORDERED: VANCOMYCIN 1 GRAM (PRE-DOCKED) 1,000 MG/250 ML BAG IVPB ONE (10:44)
[2020-11-21 12:19] LABS: BASO % 0.6 % (0-2.0); HEMATOCRIT 20.7 % (32.4-45.2); LYMPH % 27.4 % (8-40); MCH 29.1 pg (25.7-33.7); MCHC 33.4 g/dl (32.0-36.0); MEAN CELL VOLUME 87.2 fl (80-96); MEAN PLT VOLUME 9.9 fl (7.5-11.1); MONO % 4.6 % (3.8-10.2); NEUT % 67.4 % (42.8-82.8); PLATELET COUNT 191 K/MM3 (134-434); RBC 2.37 M/mm3 (3.60-5.2); RDW 19.6 % (11.6-15.6); WHITE BLOOD COUNT 16.9 K/mm3 (4.0-10.0)
[2020-11-21 12:21] LABS: HEMOGLOBIN 6.9 GM/dL (10.7-15.3)
[2020-11-21 12:22] LABS: INR 1.84 (0.83-1.09); PROTHROMBIN TIME (PATIENT) 21.9 SEC (9.7-13.0)
[2020-11-21 12:24] LABS: ACTIVATED PTT 34.9 SECONDS (25.2-36.5)
[2020-11-21 12:40] LABS: BF WBC & OTHER NUCLEATED CELLS 166 /mm3
[2020-11-21 12:45] LABS: ANISOCYTOSIS 1+; MACROCYTOSIS 1+; PLATELET ESTIMATE NORMAL; TARGET CELLS 2+
[2020-11-21] MEDS ORDERED: PIPERACILLIN/TAZOB 3.375 GM 3.375 GM/50 ML BAG IVPB ONE (13:43)
[2020-11-21 13:52] LABS: BODY FLUID MACROPHAGES 69 %; BODY FLUID MESOTHELIAL 2 %; BODYL FLD EOSINOPHIL 2 %
[2020-11-21] MEDS ORDERED: ALBUMIN HUMAN 25% 100 ML VIAL IVPB SCH (14:00)
[2020-11-21] MEDS ORDERED: LACTULOSE 20 GM/30 ML UDC (FOR ORAL USE ONLY) NGT SCH ×4 (14:30→18:00)
[2020-11-21] MEDS: LACTULOSE 20 GM/30 ML UDC (FOR ORAL USE ONLY) NGT SCH ×5 (14:44→22:00)
[2020-11-21 15:02] LABS: HEMATOCRIT 21.8 % (32.4-45.2); HEMOGLOBIN 7.2 GM/dL (10.7-15.3); MCH 29.6 pg (25.7-33.7); MCHC 33.2 g/dl (32.0-36.0); MEAN CELL VOLUME 89.1 fl (80-96); MEAN PLT VOLUME 9.7 fl (7.5-11.1); PLATELET COUNT 185 K/MM3 (134-434); RBC 2.45 M/mm3 (3.60-5.2); RDW 19.6 % (11.6-15.6); WHITE BLOOD COUNT 18.1 K/mm3 (4.0-10.0)
[2020-11-21] MEDS ORDERED: DEXTROSE 5%-NORMAL SALINE 1,000 ML IV SCH (16:00)
[2020-11-21] MEDS ORDERED: LACTULOSE 20 GM/30 ML UDC (FOR ORAL USE ONLY) ONE ×2 (18:47→21:46)
[2020-11-21 19:35] LABS: HEMATOCRIT 21.5 % (32.4-45.2); HEMOGLOBIN 7.2 GM/dL (10.7-15.3); MCH 29.3 pg (25.7-33.7); MCHC 33.5 g/dl (32.0-36.0); MEAN CELL VOLUME 87.5 fl (80-96); MEAN PLT VOLUME 9.8 fl (7.5-11.1); PLATELET COUNT 195 K/MM3 (134-434); RBC 2.46 M/mm3 (3.60-5.2); RDW 19.6 % (11.6-15.6); WHITE BLOOD COUNT 17.3 K/mm3 (4.0-10.0)
[2020-11-21 19:55] LABS: POTASSIUM 5.2 mmol/L (3.5-5.1)
[2020-11-21 19:57] LABS: CALCIUM 8.1 mg/dL (8.5-10.1)
[2020-11-21 19:58] LABS: ALBUMIN 1.6 g/dl (3.4-5.0); BLOOD UREA NITROGEN 36.8 mg/dL (7-18)
[2020-11-21 20:01] LABS: CREATININE 2.2 mg/dL (0.55-1.3)
[2020-11-21 20:02] LABS: TOT PROT 6.5 g/dl (6.4-8.2)
[2020-11-21] MEDS: DEXTROSE 5%-NORMAL SALINE 1,000 ML IV SCH (22:00)
[2020-11-21] MEDS ORDERED: CHLORHEXIDINE GLUCONATE 4% CLEANSER FOR DECOLONIZATION TP SCH (22:00)
[2020-11-22] MEDS ORDERED: PIPERACILLIN/TAZOBACTAM 2.25 GM VIAL IVPB ONE ×3 (02:29→17:33)
[2020-11-22] MEDS ORDERED: DEXTROSE 5%-WATER - 50 ML IVPB ONE ×3 (02:29→17:34)
[2020-11-22] MEDS: PIPERACILLIN/TAZOB 2.25 GM 2.25 GM in DEXTROSE 5%-WATER - 50 ML IVPB SCH ×3 (02:47→17:44)
[2020-11-22] MEDS: LACTULOSE 20 GM/30 ML UDC (FOR ORAL USE ONLY) NGT SCH ×10 (02:47→23:47)
[2020-11-22 04:05] VITALS: BMI 21.7
[2020-11-22] MEDS ORDERED: LACTULOSE 20 GM/30 ML UDC (FOR ORAL USE ONLY) PO SCH ×2 (09:00→09:03)
[2020-11-22] MEDS: PANTOPRAZOLE SODIUM 40 MG VIAL IVPUSH SCH (09:51)
[2020-11-22 11:46] LABS: URINE APPEARANCE Cloudy; URINE BILIRUBIN 3+ (NEGATIVE); URINE COLOR Other; URINE GLUCOSE (UA) Negative (NEGATIVE); URINE KETONE Trace (NEGATIVE); URINE LEUK ESTERASE Trace (NEGATIVE); URINE NITRITE Positive (NEGATIVE); URINE PROTEIN 1+ (NEGATIVE)
[2020-11-22 11:51] LABS: EPI CELLS 1.7 /uL (0-25.1); HYALINE CASTS 6.29 /uL (0-3.1); URINE BACTERIA 489.4 /uL (0-1359); URINE RBC 86.7 /uL (0-23.9); URINE WBC 237.5 /uL (0-25.8)
[2020-11-22 12:00] LABS: INR 1.93 (0.83-1.09); PROTHROMBIN TIME (PATIENT) 23.3 SEC (9.7-13.0)
[2020-11-22 12:07] LABS: HEMOGLOBIN 7.1 GM/dL (10.7-15.3); MCH 29.1 pg (25.7-33.7); MCHC 33.8 g/dl (32.0-36.0); MEAN CELL VOLUME 86.2 fl (80-96); MEAN PLT VOLUME 9.8 fl (7.5-11.1); PLATELET COUNT 247 K/MM3 (134-434); RBC 2.43 M/mm3 (3.60-5.2); RDW 20.3 % (11.6-15.6); WHITE BLOOD COUNT 20.5 K/mm3 (4.0-10.0)
[2020-11-22 12:14] LABS: YEAST NONE SEEN (NEGATIVE)
[2020-11-22] MEDS: DEXTROSE 5%-NORMAL SALINE 1,000 ML IV SCH ×2 (13:57→21:50)
[2020-11-22 13:59] LABS: POTASSIUM 3.4 mmol/L (3.5-5.1)
[2020-11-22 14:01] LABS: ALBUMIN 1.7 g/dl (3.4-5.0); BLOOD UREA NITROGEN 47.1 mg/dL (7-18); CALCIUM 8.2 mg/dL (8.5-10.1)
[2020-11-22 14:04] LABS: CREATININE 2.7 mg/dL (0.55-1.3)
[2020-11-22 14:06] LABS: TOT PROT 6.4 g/dl (6.4-8.2)
[2020-11-22 14:25] LABS: BILIRUBIN,TOTAL 8.8 mg/dL (0.2-1)
[2020-11-23 03:18] VITALS: BP 145/84; PULSE 103; TEMP 97
[2020-11-23 14:07] LABS: BODY FLUID ALBUMIN 0.3 g/dL (Not Estab.)
[2020-11-23 22:06] LABS: HEP B CORE AB, TOT Negative (Negative)
== END 2020-11-23 01:30 | disposition short-term general hospital (02) | DRG 432 ==
LOC: JER 17:15 → JERBED 20:53 → J5S 11-22 00:33 → J4S 11-22 06:38
PROVIDERS: ADMIT Internal Medicine; ATTEND Internal Medicine
PROC: 0W9G3ZX Drainage of Peritoneal Cavity, Percutaneous Approach, Diagnostic (ICD-10-PCS; 2020-11-20)
PROC: 0DH673Z Insertion of Infusion Device into Stomach, Via Natural or Artificial Opening (ICD-10-PCS; principal; 2020-11-21)
DX: K70.31 Alcoholic cirrhosis of liver with ascites (principal); K72.00 Acute and subacute hepatic failure without coma; F10.288 Alcohol dependence with other alcohol-induced disorder; N17.9 Acute kidney failure, unspecified; B17.9 Acute viral hepatitis, unspecified; R64 Cachexia; M79.7 Fibromyalgia; B19.20 Unspecified viral hepatitis C without hepatic coma; D72.829 Elevated white blood cell count, unspecified; I12.9 Hypertensive chronic kidney disease with stage 1 through stage 4 chronic kidney disease, or unspecified chronic kidney disease; N18.9 Chronic kidney disease, unspecified; R74.01 Elevation of levels of liver transaminase levels; K70.0 Alcoholic fatty liver; Z68.21 Body mass index [BMI] 21.0-21.9, adult; Z86.19 Personal history of other infectious and parasitic diseases; Z87.11 Personal history of peptic ulcer disease
CPT/HCPCS: 36415; 49083; 70450-TC; 71045-TC-FY; 74176-TC; 76700-TC; 80053; 80307; 81003; 82042; 82140; 82248; 82550; 82962; 83605; 83690; 84157; 84484; 85025; 85027; 85610; 85730; 86704; 86706; 86707; 86708; 86709; 86803; 86850; 86900; 86901; 86922; 87070; 87075; 87086; 87186; 87205; 87340; 93005; 93010; 93976; 99285-25; C9803; U0003